=== PATIENT | male | born 1960 ===

== ENCOUNTER 2020-04-11 18:53 | Emergency (ER) | payer MEDICARE, SELFPAY ==
--- NOTE | 2020-04-11 18:51 | ED.GENADUL_ITS ---
Discharge Plan Disposition Patient Disposition: HOME Condition: Good Discharge Details Chief Complaint: PsychEval Clinical Impression: Social fears Primary Care Provider: Belinda,Local ED Provider: Justine Baeza Home Meds and New Rx's Prescriptions: No Action No Known Home Meds RF: 0 Discharge Instructions Additional Instructions: Please follow-up with primary care provider soon as possible, call tomorrow to schedule follow-up appointment. You will be safe at home tonight, please continue to monitor. If you develop any new or worsening symptoms to seek care urgently once again. Discharge Data Discharge Date/Time-TO BE ENTERED AT DEPARTURE: 04/11/20 22:35 Medical Decision Making Patient is a 59-year-old male, unknown past medical history, presenting via EMS with flight of ideas. Patient was found in police department where he had gone in to be in the air conditioning. EMS states that initially, patient has been requesting to go to [facility] for further care. Patient reports that he was there 2 days ago for similar incident. He states that the patient had initially been very verbal in discussing multiple social issues. However, he then began endorsing suicidality. He is reporting that he is homeless. States that he did get good care at [facility] and would like to have similar completed here. On exam, patient does appear anxious with flight of ideas, and is perseverating on his current social situation. Unable to obtain a good history from him secondary to his current thought process. He does seem to escalate become more agitated when I tried interject questions. Not see any evidence of trauma. He is moving all his extremities well. Alert and oriented x3. Will obtain note from [place]. Patient is in agreement to have same treatment that he received there. Patient goes by Bryce. Patient is requesting food, a dark room, quiet. He states that I am suicidal until 6:55AM when you can just drop me off at the bus stop. Contacted [facility] to discuss recent treatment. Notes reviewed from 04/08/2020. Patient was seen there, patient was having vomiting and vertigo. He declined any medications. He denies suicidal or homicidal thoughts at that time. History there was also limited because of constant talking. Only intervention completed at that point was food and rest. Most, after 1 hour of sleeping. He had declined assistance at that point was discharged home. Consulted with mental health. They evaluated patient initially had the same difficulty with the patient having flight of ideas and not wanting to be interrupted. However, with time patient did have a much more calm talk with him. He denied any thoughts of self-harm or harming others. Mental health did not feel that he needed inpatient management nor does the patient want this. I did encourage close follow-up with primary care. Many different avenues regarding longterm options were discussed. In the end, it was determined that the patient was not in fact infected from his apartment but rather was given a warning and that he is able to return without issue. Patient will be transferred via [employer] back to his previous place of residence. He was given return precautions. I have asked her care management team to recheck the patient establish primary care. All his questions and concerns were addressed and he is in agreement this plan. HPI General Mode of arrival: EMS . Date/Time Provider Initiated Documentation: 04/11/20 20:27 . Limitations to Documentation: altered mental status (patient having flight of ideas, will not pause for questioning) . Information obtained by: patient, EMS, RN notes reviewed and old records reviewed . HPI Narrative: Patient is a 59-year-old male with no known past medical history, presenting today after being evaluated by EMS at police station. Patient states that he went into the police station for air conditioning. He reported to EMS that he was suicidal but is now reporting that this is more urgent to be transferred to the hospital. He states that he was at his apartment when he was served in addiction notice. Seems very distressed about this. Is distressed about a multitude of social concerns including the general state of the country, poisonous caterpillars, COVID-19, just to name a few. Patient reports he was seen at [facility] 2 days ago for same issue. His primary concern at this point is housing. He denies any headache or visual changes. He feels that he is at his baseline. He is not endorsing any pain at this point. He is not endorsing any hallucinations. No homicidality. Patient does report that he has restraining order against somebody in the community which is also very distressing for him. Related Data Home Medications Medication Instructions Recorded Confirmed Unknown [No Known Home Meds] 04/11/20 04/11/20 Allergies Allergy/AdvReac Type Severity Reaction Status Date / Time No Known Allergies Allergy Unverified 04/11/20 20:41 Review of Systems Constitutional Constitutional: Reports as per HPI, Denies chills, Denies fatigue, Denies fever(s), Denies headache(s) and Denies weakness Eyes Eyes: Denies change in vision ENT Ears, Nose, Mouth, and Throat: Denies headache(s) Cardiovascular Cardiovascular: Reports as per HPI, Denies chest pain and Denies dyspnea Respiratory Respiratory: Reports as per HPI, Denies cough and Denies dyspnea Gastrointestinal Gastrointestinal: Reports as per HPI, Denies abdominal pain, Denies change in bowel habits, Denies nausea and Denies vomiting Genitourinary Genitourinary: Denies system reviewed and no additional complaints, except as documented (denies any change in urinary habits) Musculoskeletal Musculoskeletal: Denies abnormal gait Integumentary/Breasts Skin/Breast: Reports as per HPI and Denies rash Neurologic Neurologic: Denies abnormal movements, Denies abnormal speech, Denies abnormal gait, Denies behavioral changes, Denies headache(s), Denies paresthesias and Denies weakness Psychiatric Psychiatric: Reports as per HPI, Denies behavioral changes, Denies mood swings, Denies paranoia, Denies visual hallucinations, Denies homicidal ideation and Denies suicidal ideation Endocrine Endocrine: Denies fatigue [facility] Social History Smoking/Tobacco Use Status: Former Tobacco Use Alcohol Intake: former Substance use type: does not use Do you feel safe at home: No Additional Social history: homeless Exam Const General: cooperative, healthy appearing, well developed, well groomed, anxious and disheveled Nutritional Appearance: average body habitus and well nourished Orientation: alert, awake and oriented x3 Eyes General: appearance normal, both eyes and all related structures Resp Effort & Inspection: normal respiratory effort, able to speak in complete sentences and no respiratory distress Auscultation: clear to auscultation bilaterally, no rales, no rhonchi and no wheezes Cardio Rate: regular rate Rhythm: regular rhythm Heart Sounds: S1 normal and S2 normal Skin General skin exam: no rashes or lesions noted Trauma: no lacerations or abrasions Neuro General: patient alert and patient awake Cognition: normal cognition Speech: speech normal Gait: normal gait Psych Appearance: disheveled Mental Status: mental status grossly normal Speech and Movement: agitated Mood: expansive Affect: labile affect Attitude: cooperative Thought Process: flight of ideas and perseverating (social stressors) Thought Content: no homicidality and suicidality Insight: limited Judgment: limited
[2020-04-11 19:20] VITALS: BP 141/95; PULSE 86; RESP 16; TEMP 36.6; O2SAT 97
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
--- NOTE | 2020-04-11 20:40 | NUR.NOTE ---
[facility] mental health in to eval pt. Declined josselyn.
--- NOTE | 2020-04-11 21:42 | MHPN_ITS ---
Date of service: 04/11/20 Time of Service: 21:55 Mental Health Progress Note Progress Note Progress Note: Presenting Issue: Client presented to ED via ambulance after walking into [facility] Police Dept. Advising officers that he needed medical treatment. Client denies SI/HI, stating I'm not going to hurt myself or others. Precipitating Factors Client states he is homeless, though he does rent an apartment on [address] in [facility]. Client states he was prescribed Devol at one time, but doesn't take it. Disposition * Behavior: Client is manic, and has a challenging time allowing this food writer to interject into the conversation. Client is laying down on his hospital bed, holding a vomit bag. *Eye Contact: good eye contact *Mood: Client is agitated but not aggressive *Affect: Client displays manic speech, labile affect *Appetite: Client states he needs to eat, and that is why he feels sick to his stomach. ED staff will provide dinner. *Sleep(trouble falling/staying asleep): Did not assess Plan(please elaborate and include that physician is consulted with plan and/or placement): Client will be discharged from ED and transported to the [facility] by [facility]. Consult with Jenn Baeza, client is not a danger to himself or others. Clinician's Name , Title, and Signature Carolyn Cordova Emergency Services Charge Master Coordinator, [facility] Make sure that you are photocopying and submitting this to [facility] records Dept. to be scanned into chart.
== END 2020-04-11 22:35 | disposition home or self-care (01) ==
LOC: ER 23:24
PROVIDERS: Emergency Provider Physician Assistant
DX: R41.89 Other symptoms and signs involving cognitive functions and awareness (principal)
CPT/HCPCS: 99284; 99283

== ENCOUNTER 2020-04-14 02:01 | Emergency (ER) | payer MEDICARE, SELFPAY ==
[2020-04-14 02:00] VITALS: BP 140/76; PULSE 90; RESP 16; TEMP 36.6; O2SAT 98
--- NOTE | 2020-04-14 02:04 | ED.GENADUL_ITS ---
Discharge Plan Disposition Patient Disposition: HOME Condition: Stable Discharge Details Chief Complaint: PsychEval Clinical Impression: Manic behavior, Anxiety Primary Care Provider: Belinda,Local ED Provider: Harriet Davis Home Meds and New Rx's Prescriptions: No Action No Known Home Meds RF: 0 Discharge Instructions Instructions: Anxiety (ED) Additional Instructions: Follow-up with Caroline from [facility] today at [facility] at 1pm. Go to [facility] after discharge from here to arrange for a ride home. Return to the emergency department with any worsening or new concerning symptoms. Discharge Data Discharge Date/Time-TO BE ENTERED AT DEPARTURE: 04/14/20 11:00 Discharge Physician: Harriet Davis Medical Decision Making <Arjun Hardy DO - Last Filed: 04/14/20 22:32> 59-year-old male who is a poor historian presents today for evaluation of mental health crisis. He was brought by EMS here after the police were called when the patient was throwing some plants off of his balcony. At the time he denied any homicidal or suicidal ideations. Her police recommended that he come to the ER for further evaluation. He was then subsequently brought by EMS. Currently the patient has no complaints, demonstrates notable pressured speech and flight of ideas. He denies homicidal, suicidal ideations, he denies auditory or visual hallucinations. He has no other complaints at this time. Physical exam demonstrates notable pressured speech, flight of ideas, and complete verbalization of all of his thoughts. No homicidal or suicidal ideations are to speak of. Patient is otherwise pleasant and follows all direction. Concern for manic episode. Clinically appears medically clear, however we will get basic/appropriate labs for further assessment, contact mental health, get a sitter, monitor closely and reassess. 3:24 AM Patient continues to demonstrate flight of ideas. He has been assessed by mental health, major uncertain if he would qualify for EE at this time. Currently the patient is willing to stay voluntarily for reassessment later this morning. He has been medically cleared. I do feel that he would benefit from an antipsychotic or sleeping medicine to help him rest, however at this time he does not want any additional medications. We will offer Zyprexa if he does decide to take it. We will continue to monitor here closely, for reassessment by mental health in the grades 9 thru 12 visiting teacher at 7 AM. Patient otherwise remained stable. If mental health assessment has not been completed by 8 AM the patient will be signed out to my colleague for further management. 5:32 AM The patient has been speaking throughout the night, still demonstrates symptoms of deyanira, but continues to deny homicidal or suicidal ideations. Patient did take a brief nap, he has awoken up now, seeing the clock, and is now demanding a phone to contact [facility] get a ride. Uncertain as to where he is actually trying to go. We did contact mental health again, discussed the scenario with them as well as our capabilities to hold the patient here against as well in his current scenario. They will be reaching out for a formal QMHP further potential evaluation. Is not currently clear from them as to what are allowances in the scenario as the patient currently denies any homicidal or suicidal ideations but at the same time does not appear to be of his palm mind, with is clear evidence of deyanira, flight of ideas, pressured speech, and somewhat inconsistent statements. Currently the patient is slightly redirectable, but we are having difficulty maintaining this redirection. We are waiting for mental health callback at this time for further recommendations and direction. 5:41 AM At this time currently has not been able to get a hold of any of her [facility] for further direction or evaluation. The patient remains redirectable. His agitation has increased, but he remains nonviolent at this time. 5:58 AM The scenario has been discussed with Carolyn, and at this time upon her asses sment she recommends that if the patient does want to go and does not want to stay he is free to do so as he is currently not showing any homicidal or suicidal ideations and is not showing evidence that he is a direct threat to himself or others. They are currently still trying to get a QMHP and assessed the patient here however they are having difficulty getting in contact with those currently salesperson recreational vehicles. <Harriet Davis DO - Last Filed: 04/16/20 08:44> 0800 --Case endorsed by Dr. Hardy to follow-up with mental health regarding disposition. 09 --Venus and Lavonne evaluated patient at bedside. Lavonne knows patient well and knows the area where he lives and the people that he is speaking of and he does not demonstrate any psychotic behavior, but rather his behavior appears consistent with his deyainra and anxiety. He denies any suicidal or homicidal ideation. There is no indication for inpatient psychiatric hospitalization and patient will be discharged home. Plan is for patient to meet with Caroline from [facility] services at [address] [facility] to continue to arrange his treatment plan. A CMP was added to initial order set and negative for any acute findings. A UDS was not obtained and do not see an indication to hold patient here to obtain this. Patient was provided with a ride home. Usual and customary return precautions given prior to discharge. HPI <Arjun Hardy DO - Last Filed: 04/14/20 22:32> General Date/Time Provider Initiated Documentation: 04/14/20 02:04 . HPI Narrative: 59-year-old male who is a poor historian presents today for evaluation of mental health crisis. He was brought by EMS here after the police were called when the patient was throwing some plants off of his balcony. At the time he denied any homicidal or suicidal ideations. Her police recommended that he come to the ER for further evaluation. He was then subsequently brought by EMS. Currently the patient has no complaints, demonstrates notable pressured speech and flight of ideas. He denies homicidal, suicidal ideations, he denies auditory or visual hallucinations. He has no other complaints at this time. Related Data Home Medications Medication Instructions Recorded Confirmed Unknown [No Known Home Meds] 04/11/20 04/11/20 Allergies Allergy/AdvReac Type Severity Reaction Status Date / Time No Known Allergies Allergy Unverified 04/14/20 02:12 General MILADY: 2 Review of Systems <Arjun Hardy DO - Last Filed: 04/14/20 22:32> All systems reviewed & are unremarkable except as noted in HPI and below PFSH <Arjun Hardy DO - Last Filed: 04/14/20 22:32> Social History Smoking/Tobacco Use Status: Former Tobacco Use Alcohol Intake: former Substance use type: does not use Do you feel safe at home: Yes Do you feel safe in your relationship?: Yes Additional Social history: homeless Exam <Arjun Hardy DO - Last Filed: 04/14/20 22:32> Narrative Exam Narrative: 1.Const: Well-nourished, Well-developed, appearing stated age 2.Eyes: PERRL, no conjunctival injection, and symmetrical lids. 3.ENT: Atraumatic external nose and ears. Moist MM. Neck: Symmetric, trachea midline, No thyromegaly. 4.CVS: +S1/S2, No murmurs or gallops. Peripheral pulses 2+ and equal in all extremities. Brisk capillary refill in all extremities. 5.RESP: Unlabored respiratory effort. Clear to auscultation bilaterally. No wheezes rales or rhonchi 6.GI: Soft, Nontender/Nondistended, No hepatosplenomegaly. No guarding or rebound. 7.MSK: Normocephalic/Atraumatic, Extremities w/o deformity or ttp No cyanosis or clubbing, Normal movement of all extremities 8.Skin: Warm, Dry. No rashes or lesions. 9.Neuro: meat team member II-XII grossly intact. Sensation grossly intact, no focal neurologic deficits. 10.Psych: (AAO) x3. Notable pressured speech, flight of ideas, continued verbalization of all of his thoughts. Sign Out <Arjun Hardy DO - Last Filed: 04/14/20 22:32> Sign Out Data: Sign Out Comment: Pending assessment by [facility], symptoms are concerning for deyanira, schizophrenia potentially. Medically cleared. Last updated by Arjun Hardy DO at 04/14/20 07:42
[2020-04-14 02:23] LABS: Abs Immature Grans 0.01 k/cumm (0.0-0.09); Absolute Basophil Count 0.01 k/cumm (0.0-0.2); Absolute Eosinophil Count 0.08 k/cumm (0.0-0.7); Absolute Lymphocyte Count 1.82 k/cumm (1.2-3.4); Absolute Monocyte Count 0.46 k/cumm (0.11-0.7); Absolute Neutrophil Count 3.55 k/cumm (1.2-6.7); Basophils % 0.2; Eosinophils % 1.3; HCT 42.8 % (40.0-50.0); Immature Grans % 0.2 %; Lymphocytes % 30.7; Mean Corpuscular Hemoglobin 32.1 pg (27.0-33.0); Mean Corpuscular Volume 91.5 fL (80-95); Mean Platelet Volume 8.4 fL (8.0-11.0); Monocytes % 7.8; Neutrophils % 59.8; Platelet Count 344 x1000/uL (130-400); RBC 4.68 m/cumm (4.50-6.00); RBC Distribution Width 12.3 % (11.8-14.1); White Blood Cell Count 5.93 k/cumm (4.4-10.8)
[2020-04-14 02:37] LABS: Salicylate < 2.8 mg/dL (2.8-20.0)
[2020-04-14 02:38] LABS: Acetaminophen < 2 ug/mL (10-30)
[2020-04-14 02:47] LABS: ETHANOL BLOOD < 3.0 mg/dL (<3); TSH (W/Ref FT4) 3.65 uIU/mL (0.36-3.74)
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
--- NOTE | 2020-04-14 03:37 | NUR.NOTE ---
Nursing Note: Contacts Reilly Gastelum [phone] [address], [place] [id number]
--- NOTE | 2020-04-14 03:59 | PDOC.CMSAFED ---
- If Service Date Differs Date of service: 04/14/20 Time of Service: 03:59 Care Management Safety Plan Melchor is a 59 year old male that is presenting with symptoms of Jacquelyn he is not HI or SI. This is Melchor's second visit in three days to the ED. Today he is presenting with symptoms per provider, of pressured speech and some delusional behaviors. is concerned that Melchor's symptoms may affect his decision making capability if discharged from the ED. Currently Melchor is willing to stay in the ED until the morning, Please see [facility] crisis note for details. As long as Melchor remains voluntary he will remain in that status with an interim safety plan and one on one support by CPSO. Melchor will be revaluated in the morning by [facility] to determine next level of care. Melchor is willing to stay he is not willing to accept medications at this time to manage symptoms. CM reviewed the interim safety plan with to determine level of restriction to support Melchor's safety. The following plan will act as a safety plan until further evaluation. Interim safety plan 1. Melchor may remain in his own clothing he is not currently SI/HI. 2. Melchor will have a one on one CPSO or qualified RN, CARTOGRAPHIC AIDE, or ELECTRIC STOVE MECHANIC at all times. 3. Staff will follow the [facility] managing the behavioral health patient policy 4. Melchor may have paper cups, plates and can have a regular spoon for meals, to be accounted for by staff after his meal. 5.He may use comfort bath wipes or shower if available with one on one supervision. 6. Melchor will have qualified staff with him when outside the room including escort to and from the bathroom while in the ED. 7. Melchor may have the following activities including paper, reading material, coloring, music tablet, television if becomes available. 8. Visitors at the discretion of primary care team and Melchor's ability to engage. 9. Telephone - with supervision This safety plan is in place until Melchor can be evaluated by [facility] in the morning. If Melchor meets the criteria for psychiatric stabilization the child care associate teacher will meet with the patient face to face to establish a safety plan based on his goals and safety. Melchor will remain in the ED at this time. If Melchor chooses to leave [facility] please contact the CM foot and ankle surgeon and [facility] to have him evaluated prior to leaving the hospital.
--- NOTE | 2020-04-14 04:00 | NUR.NOTE ---
Nursing Note: Patient allowed to remain in patient clothing as he is not SI/HI per Dr Hardy.
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
--- NOTE | 2020-04-14 05:28 | NUR.NOTE ---
Nursing Note: Patient becoming agitated no one wants me. Call me [facility] so I can get to [place]. Dr Hardy has call out to Mental Health to discuss possible EE again. Await call.
--- NOTE | 2020-04-14 06:46 | NUR.NOTE ---
Nursing Note: Patient ambulated to restroom. Instructed to leave bag with personal belongings in room. Patient brought his insurance, receipts and mail with him to restroom. Continues to be redirectable. Awaiting phone call for further evaluation and management from Mental Health.
--- NOTE | 2020-04-14 07:00 | NUR.NOTE ---
Nursing Note: Handoff given to Hanh RODRIGUEZ.
--- NOTE | 2020-04-14 07:15 | NUR.NOTE ---
patient talking non-stop stating he needs a bus to take him somewhere. Advised patient he needed to remain in his room (as he was coming out of his room). Advised pt. that he would be remaining here until he had spoken and been cleared for discharge, if appropriate, by and the MD.
[2020-04-14 09:12] LABS: ALT 38 U/L (16-63); AST 40 U/L (15-37); Albumin 4.4 g/dL (3.4-5.0); Alkaline Phosphatase 56 U/L (46-116); Anion Gap 14.3 mmol/L (3-11); BUN 24 mg/dL (7-18); Bilirubin, Total 0.5 mg/dL (0.2-1.0); CO2 23.7 mmol/L (21.0-32.0); CREATININE 1.02 mg/dL (0.70-1.30); Calcium 9.4 mg/dL (8.5-10.1); Chloride 104 mmol/L (98-107); Glucose 122 mg/dL (74-106); Potassium 3.7 mmol/L (3.5-5.1); Sodium 142 mmol/L (136-145); Total Protein 7.8 g/dL (6.4-8.2)
--- NOTE | 2020-04-14 09:20 | PDOC.MHCN_ITS ---
Date of service: 04/14/20 Time of Service: 09:20 Mental Health Crisis Note Presenting Issue How did you arrive at the ED and why did you come: Melchor arrived to the ER early this am via ambulance. He was sent by LE after a neighbor called 911. Precipitating Factors Melchor denied SI and HI. He is not showing signs of delusions althoug it appears that way, the information he is sahring is common street knowledge. Disposition BEHAVIOR: Melchor is presenting as very manic with pressured speech. He is cooperative and engaged. Melchor remembers meeting with this clinician months ago when we were first brought to his attention. EYE CONTACT: Melchor makes good eye contact and it is at times intense. MOOD: Melchor presents as manic and has rapid speech and thoughts. AFFECT: Affect appears normal mostly but eccentric at times. APPETITE: Not discussed SLEEP(trouble falling/staying asleep: Not discussed Plan Melchor to be d/c today. He will meet with the library manager at 1 today at [facility]. Rail Technician will assist him in getting set up with supports and services. Signature Clinician's Name/Title: Venus Syed MS, [facility] EMergency Services Clinician
== END 2020-04-14 11:00 | disposition home or self-care (01) ==
PROVIDERS: Student in an Organized Health Care Education/Training Program; Emergency Provider Physician Assistant
DX: F30.10 Manic episode without psychotic symptoms, unspecified (principal); F41.9 Anxiety disorder, unspecified
CPT/HCPCS: 36415; 80053; 99283; 80320; 80329; 84443; 85025

== ENCOUNTER 2020-04-24 16:50 | Emergency (ER) | payer MEDICARE, SELFPAY ==
[2020-04-24 16:47] VITALS: BP 140/99; PULSE 101; RESP 22; TEMP 36.7; O2SAT 97
--- NOTE | 2020-04-24 17:04 | NUR.NOTE ---
Nursing Note: Pt backpacks removed from room. Cell phone, sweatshirt and wallet remain at this time. Provider and industrial maintenance mechanic aware.
--- NOTE | 2020-04-24 17:25 | W.ED.GENAD ---
Discharge Plan Disposition Patient Disposition: HOME Condition: Stable Discharge Details Chief Complaint: PsychEval Clinical Impression: Manic behavior Primary Care Provider: Belinda,Local ED Provider: El Telles Home Meds and New Rx's Prescriptions: No Action No Known Home Meds RF: 0 Discharge Instructions Instructions: Psychotic Disorder (ED) Additional Instructions: At this time your evaluation does not show any obvious emergent process. You have been evaluated by General acute hospital and plan is for discharge. Please follow their instructions. Watch for new or worsening symptoms and return to the ER for any concerns. Medical Decision Making <ADAM Holcomb - Last Filed: 04/24/20 19:11> This is a 59-year-old gentleman who presents via EMS requesting a psychiatric evaluation. He is asking for Venus by name. He is not really willing to engage much in HPI or physical examination. He denies recent illness or trauma. He has no acute medical concerns or complaints at this time. He denies any suicidal or homicidal ideations whatsoever. He does report that he is angry with the police, he feels as though they are harassing him, arresting him unlawful he. He reports that he has multiple lawsuits going through the district sales manager and Mainframe Analyst. He begins talking about his mother and then laughs inappropriately. He tells me that he is homeless and he has nowhere to go at the moment. He would like a ride or free transportation to [place]. At this time though he is not willing to divulge much information he clearly denies any acute medical concerns or complaints. He denies any suicidal or homicidal ideations. I am not seeing any clear indication that would require emergent psychiatric hospitalization, therefore I will not reflexively obtain laboratory values. I will reach out to [facility] human services, specifically Venus, for psychiatric evaluation that the patient is requesting. Venus came to the ER for a [id number] evaluation, please see her note. At this time she does not believe that he needs inpatient criteria and recommends discharge. Discharge papers were printed, and we presented the discharge papers with MICHAEL Donovan, officer, Dr. Beauchamp, and myself. Patient was initially unwilling to be discharged however then after explaining to him that he had no emergent process that would require inpatient services, he was willing to be discharged. He gathered his belongings and walked out of the hospital on his own will. He reported that he was going to go down to the local grocery store and attempt to find a ride to [place]. Upon discharge patient appears well, nontoxic. Medical Records Medical records reviewed: Yes I reviewed the patient's medical records. <Favian Beauchamp MD - Last Filed: 04/24/20 18:21> Patient seen and examined [id number] and in conjunction with Mr. Telles. Also discussed with mental health screener. I agree with Mr. Telles's assessment and plan of care. HPI <ADAM Holcomb - Last Filed: 04/24/20 19:11> General Mode of arrival: EMS. Date/Time Provider Initiated Documentation: 04/24/20 16:51. Limitations to Documentation: no limitations. Information obtained by: patient and EMS. HPI Narrative: This is a 59-year-old gentleman who presents via EMS requesting a psychiatric evaluation by Venus. Patient initially is unwilling to answer any questions, does not want to get into hospital attire, and does not want to part with any of his belongings. After showing a power of numbers, he was willing to allow his bags to be placed outside of the room. He denies any acute medical problems to me. Denies recent illness or trauma. Denies alcohol or drugs. He does not want to answer any more of my questions and continues to request a psychiatric evaluation. He has multiple comments regarding the LAKEISHA and Mainframe Analyst. He talks about his mother but does not make any clear statements or sense. He denies any suicidal or homicidal ideations to me. Related Data Home Medications Medication Instructions Recorded Confirmed Unknown [No Known Home Meds] 04/11/20 04/11/20 Allergies Allergy/AdvReac Type Severity Reaction Status Date / Time No Known Allergies Allergy Unverified 04/24/20 16:59 General Stated Complaint: PsychEval MILADY: 2 Review of Systems <ADAM Holcomb - Last Filed: 04/24/20 19:11> Unobtainable due to mental status PFSH <ADAM Holcomb - Last Filed: 04/24/20 19:11> Social History Smoking/Tobacco Use Status: Former Tobacco Use Alcohol Intake: former Substance use type: does not use Do you feel safe at home: Yes Do you feel safe in your relationship?: Yes Additional Social history: homeless Exam <ADAM Holcomb - Last Filed: 04/24/20 19:11> Const General: healthy appearing, comfortable and no acute distress Orientation: alert, awake and oriented x3 HENMT Head: normal to inspection, normocephalic and atraumatic Face and sinus: normal facial exam Mouth: moist mucous membranes Eyes Conjunctivae: conjunctivae normal Sclera: sclerae normal Neck Neck: normal visual inspection, full ROM, no meningeal signs, trachea midline, supple and nontender Resp Effort & Inspection: normal respiratory effort and able to speak in complete sentences Auscultation: clear to auscultation bilaterally Cardio Rate: regular rate Rhythm: regular rhythm GI Palpation: soft and nontender Back/Spine/Pelvis Back: No back tenderness Skin General skin exam: no rashes or lesions noted Neuro General: patient alert, patient awake, patient oriented x3, moves all extremities and no focal motor deficits Cranial Nerves: CN's II-XI intact bilaterally Gait: normal gait Motor: muscle tone normal throughout and strength 5/5 throughout Sensory Exam: no sensory deficits noted Extrem General: normal to inspection, full ROM and capillary refill normal Psych Appearance: grossly normal Speech and Movement: agitated and pressured speech Mood: manic mood and paranoid Affect: anxious affect Attitude: guarded Thought Process: flight of ideas Thought Content: no homicidality and suicidality Insight: fair Judgment: fair Course <ADAM Holcomb - Last Filed: 04/24/20 19:11> Vital Signs Vital signs: Vital Signs Temperature 36.7 C 04/24/20 16:47 Pulse 101 H 04/24/20 16:47 Respiratory Rate 22 04/24/20 16:47 Blood Pressure 140/99 H 04/24/20 16:47 Pulse Oximetry 97 04/24/20 16:47 Temperature 36.7 C 04/24/20 16:47 Temperature Source Skin 04/24/20 16:47 Pulse 101 H 04/24/20 16:47 Respiratory Rate 22 04/24/20 16:47 Respiratory Effort Non-Labored 04/24/20 17:18 Blood Pressure 140/99 H 04/24/20 16:47 Blood Pressure Position Sitting 04/24/20 16:47 Pulse Oximetry 97 04/24/20 16:47 Oxygen Delivery Method Room Air 04/24/20 16:47 Oxygen Flow Rate 0 04/24/20 16:47
--- NOTE | 2020-04-24 18:23 | PDOC.MHCN_ITS ---
Date of service: 04/24/20 Time of Service: 18:23 Mental Health Crisis Note Presenting Issue How did you arrive at the ED and why did you come: Melchor arrived via ambulance after he called 911. He is requesting an evaluation. Precipitating Factors Melchor refused to answer any questions and it was not until he was told he was leaving he said he was going to kill himself. He said as he was being discharged that he is not SI here at this hospital that he will be at [facility]. Disposition BEHAVIOR: Melchor initially came in asking for this clinician. Melchor stated that he was arrested today and that he is here because of you fucking MH people. He would not engage in a conversation so this clinician ended the assessment and asked the ER to discharge him. He initially refused to go and so was called to escort him out. He reported that he was goingto [facility] to [facility] for an ambulance to go to [place]. EYE CONTACT: Melchor would not make eye contact. MOOD: Melchor is manic and would not engage in treatment. He reports that he is angry that he is being charged. AFFECT: Melchor's affect is flat. APPETITE: Not assessed SLEEP(trouble falling/staying asleep: Not assessed Plan Melchor was discharged from ER to go home. No other follow up is needed. Signature Clinician's Name/Title: Venus Syed MS, [facility] Emergency Services Clinician
== END 2020-04-24 18:30 | disposition home or self-care (01) ==
PROVIDERS: Emergency Provider Physician Assistant
DX: F31.10 Bipolar disorder, current episode manic without psychotic features, unspecified (principal)
CPT/HCPCS: 99283

== ENCOUNTER 2020-04-25 01:05 | Observation (INO) | payer MEDICARE, SELFPAY ==
--- NOTE | 2020-04-24 23:52 | W.ED.GENAD ---
Discharge Plan Discharge Details Chief Complaint: PsychEval Primary Care Provider: Belinda,[facility] ED Provider: Arjun Hardy Home Meds and New Rx's Prescriptions: No Action No Known Home Meds RF: 0 Medical Decision Making This is a 59-year-old male with a past medical history of notable deyanira, previous suicidal ideations and attempts, who presents today for suicidal ideations and deyanira. Over the last few days he has been thoroughly managed by mental health on both an outpatient basis and here in the ED. He has been to the ED twice recently, most recent time was earlier this evening where he was initially claiming suicidal thoughts, but eventually was deemed by mental health to be stable for discharge after evaluation. Subsequently after being discharged he left, and then contacted authorities stating that he was going to go into the [place]ter to kill himself. He was eventually found by police, and after they consulted venus from [facility] it was recommended that he come in for emergency evaluation and management with a plan for psychiatric admission. [facility] has contacted a optical coating technician, and has received a warrant for the patient to be brought in secondary to him being a danger to himself. Currently the patient has been brought in by law enforcement, he is currently demonstrating notable flight of ideas stating that he was just in [place] and applied to the local [employer] for a job (the [employer] and [place] has been closed for the last month and a half), he claims multiple things about his mother wanting to see him (who is currently ), and multiple other notably non-grounded statements. When asked direct questions he is unable to clearly answer, however multiple times both here and in the presence of mental health, Venus, as well as the police the patient has stated and continues to state I am going to jump off a bridge when I can find it and kill myself. History is otherwise limited to what is been given to us by mental health and PD. Physical exam demonstrates patient with notable pressured speech, flight of ideas, and significant nonsensical statements including statements wanting to harm himself, referring to his mother in a state that she would be living where she is actually , and other components. Patient is not acting in his own best interest, and is a threat to himself. He does not appear to be a threat to others at this time. Through prolonged and notable discussion the patient is able to follow commands. Initially he was offered Ativan to help relax, but he refused this. Restraints have not been needed at this time. If the patient's notable deyanira continues we will offer Zyprexa as an alternative. [facility] has seen and evaluated the patient, and they recommend prompt admission, and then transfer to a mental health facility. We will do a medical screening. He will be placed in paper scrubs, and will maintain one-to-one observation. EE paperwork has been filled out, [facility] recommends this. Patient will be admitted once medically clear. 3:02 AM Patient has been medically cleared, patient stable, he did take Zyprexa willingly, and is now sleeping comfortably. Laboratory work-up is non-concerning. Discussed case with Dr. Woodward, he agrees on admission. I will place admission orders on his behalf at his request. I have extensively reviewed the treatment plan with the patient. I have addressed all patient concerns at this time. I have also discussed the plan with the admitting physician and they agree with the current assessment and plan and have agreed to assume responsibility for the patient. All parties demonstrate verbal understanding and agreement with our assessment and plan at this time. HPI General Date/Time Provider Initiated Documentation: 04/25/20 01:06. HPI Narrative: This is a 59-year-old male with a past medical history of notable deyanira, previous suicidal ideations and attempts, who presents today for suicidal ideations and deyanira. Over the last few days he has been thoroughly managed by mental [facility] on both an outpatient basis and here in the ED. He has been to the ED twice recently, most recent time was earlier this evening where he was initially claiming suicidal thoughts, but eventually was deemed by [facility] to be stable for discharge after evaluation. Subsequently after being discharged he left, and then contacted authorities stating that he was going to go into the [place] to kill himself. He was eventually found by police, and after they consulted venus from [facility] it was recommended that he come in for emergency evaluation and management with a plan for psychiatric admission. [facility] has contacted a optical coating technician, and has received a warrant for the patient to be brought in secondary to him being a danger to himself. Currently the patient has been brought in by law enforcement, he is currently demonstrating notable flight of ideas stating that he was just in [place] and applied to the local [employer] for a job (the [employer] and [place] has been closed for the last month and a half), he claims multiple things about his mother wanting to see him (who is currently ), and multiple other notably non-grounded statements. When asked direct questions he is unable to clearly answer, however multiple times both here and in the presence of mental health, Venus, as well as the police the patient has stated and continues to state I am going to jump off a bridge when I can find it and kill myself. History is otherwise limited to what is been given to us by mental health and PD. Related Data Home Medications Medication Instructions Recorded Confirmed Unknown [No Known Home Meds] 04/11/20 04/25/20 Allergies Allergy/AdvReac Type Severity Reaction Status Date / Time No Known Allergies Allergy Unverified 04/25/20 01:58 General MILADY: 2 Review of Systems All systems reviewed & are unremarkable except as noted in HPI and below PFSH Social History Smoking/Tobacco Use Status: Former Tobacco Use Alcohol Intake: former Substance use type: does not use Do you feel safe at home: Yes Do you feel safe in your relationship?: Yes Additional Social history: homeless Exam Narrative Exam Narrative: 1.Const: Well-nourished, Well-developed, appearing stated age 2.Eyes: PERRL, no conjunctival injection, and symmetrical lids. 3.ENT: Atraumatic external nose and ears. Moist MM. Neck: Symmetric, trachea midline, No thyromegaly. 4.CVS: +S1/S2, No murmurs or gallops. Peripheral pulses 2+ and equal in all extremities. Brisk capillary refill in all extremities. 5.RESP: Unlabored respiratory effort. Clear to auscultation bilaterally. No wheezes rales or rhonchi 6.GI: Soft, Nontender/Nondistended, No hepatosplenomegaly. No guarding or rebound. 7.MSK: Normocephalic/Atraumatic, Extremities w/o deformity or ttp No cyanosis or clubbing, Normal movement of all extremities 8.Skin: Warm, Dry. No rashes or lesions. 9.Neuro: edge bander hand II-XII grossly intact. Sensation grossly intact, no focal neurologic deficits. 10.Psych: Flight of ideas, pressured speech, multiple non-grounded nonsensical statements,
--- NOTE | 2020-04-25 01:48 | PDOC.MHCN ---
Date of service: 04/25/20 Time of Service: 01:48 Mental Health Crisis Note Presenting Issue How did you arrive at the ED and why did you come: Melchor arrived tonight via [place] [employer] on a Warrant applied for by [facility] and signed by Judge Walker. Precipitating Factors Melchor had called 911 after his discharge from [facility] ER mid evening yesterday. He reported that he had left [facility] because they were racist. He called again and stated that he was going into the [place] to kill himself. Disposition BEHAVIOR: Melchor was uncooperative and not willing to go with LE or to the hospital willingly after making several statements that he was going to kill himself. He presents still with pressured speech and racing thoughts. EYE CONTACT: Melchor made good eye contact. MOOD: Melchor presents as being in a manic state. APPETITE: Not assessed. SLEEP(trouble falling/staying asleep: Not assessed Plan Melchor will stay at [facility] on EE status pending a second cert. He will be evaluated daily as a result. Signature Clinician's Name/Title: Venus Syed MS, [facility] Emergency Services Clinician
[2020-04-25 01:57] LABS: Abs Immature Grans 0.05 10^3/uL (0.0-0.06); Absolute Basophil Count 0.03 10^3/uL (0.0-0.2); Absolute Eosinophil Count 0.03 10^3/uL (0.0-0.7); Absolute Lymphocyte Count 1.77 10^3/uL (1.2-3.4); Absolute Monocyte Count 0.82 10^3/uL (0.1-0.8); Absolute Neutrophil Count 12.02 10^3/uL (1.2-6.7); Basophils % 0.2; Eosinophils % 0.2; HCT 48.5 % (40.0-50.0); HGB 16.6 g/dL (13.5-17.5); Immature Grans % 0.3; MCH 31.9 pg (27.0-33.0); MCHC 34.2 % (32.0-36.0); MCV 93.3 fL (80-95); MPV 8.5 fL (8.0-11.0); Monocytes % 5.6; Neutrophils % 81.7; Platelet Count 340 10^3/uL (130-400); RDW 11.9 % (11.8-14.1); RDW-SD 41.5 fL; WBC 14.71 10^3/uL (4.4-10.8)
[2020-04-25] MEDS: OLANZapine 10 MG TAB 20 MG PO (02:04)
--- NOTE | 2020-04-25 02:09 | CMSP_ITS ---
- If Service Date Differs Date of service: 04/25/20 Time of Service: 02:27 Care Management Safety Plan Melchor is a 59 year old male that is presenting with symptoms of suicidal ideation with a plan to jump off the bridge. CM has reviewed his clinical chart and reviewed the patient with [facility]. Melchor has been to the ED several times over the past few weeks and per HP is presenting with SI and a plan to act on his ideation. Melchor is now admitted involuntary and in need of psychiatric s tabilization. LISBET reviewed the safety plan with Venus Syed [facility] to determine level of restriction to support Melchor's safety. Involuntary safety plan for Melchor Gastelum 1. Melchor will change to paper clothing due to suicidal ideation. 2. Melchor will have a one on one CPSO or qualified RN, CITIZENSHIP INSTRUCTOR, or FOOD SAFETY OFFICER at all times. 3. Staff will follow the [facility] managing the behavioral health patient policy 4. Melchor may have paper cups, plates and cardboard utensils. 5.He may use comfort bath wipes or shower if available with one on one supervision. 6. Melchor will have qualified staff with him when outside the room including escort to and from the bathroom while in the ED. 7. Melchor may have the following activities including paper, reading material, coloring,television if becomes available. 8. Visitors none at this time 9. Telephone - with supervision 10. Melchor is involuntary and may not leave the facility unless being transferred to a psychiatric facility by appropriate transportation, he remains in the custody of department of mental health and will await a second certification with psychiatric provider. Second certification to be arranged by [facility]. If Melchor does attempt to leave Crisis [facility] [phone] will be contacted and the supervisor ornamental ironworking direct care specialist notified. [facility] will outreach inpatient facilities in the [facility] to identify placement for stabilization for Melchor. Second certification to be coordinated by [facility] with the direct care specialist assigned to Melchor. Once placement has been identified the patient will be transferred via calculation reviewer coordinated by [facility].
[2020-04-25 02:18] LABS: Salicylate < 2.8 mg/dL (2.8-20.0)
[2020-04-25 02:21] LABS: ALT 30 U/L (16-63); AST 26 U/L (15-37); Albumin 4.8 g/dL (3.4-5.0); Alkaline Phosphatase 69 U/L (46-116); Anion Gap 11.9 mmol/L (3-11); BUN 21 mg/dL (7-18); Bilirubin, Total 0.4 mg/dL (0.2-1.0); CO2 25.1 mmol/L (21.0-32.0); CREATININE 1.05 mg/dL (0.70-1.30); Calcium 9.9 mg/dL (8.5-10.1); Chloride 103 mmol/L (98-107); Glucose 120 mg/dL (74-106); Sodium 140 mmol/L (136-145); TSH (W/Ref FT4) 2.65 uIU/mL (0.36-3.74); Total Protein 8.5 g/dL (6.4-8.2)
[2020-04-25 02:28] LABS: ETHANOL BLOOD < 3.0 mg/dL (<3)
[2020-04-25 02:29] LABS: Acetaminophen < 2 ug/mL (10-30)
[2020-04-25 03:40] VITALS: BP 84/52; PULSE 67; RESP 16; TEMP 35.9; O2SAT 98
--- NOTE | 2020-04-25 06:26 | HPE_ITS ---
Date of service: 04/25/20 Time of Service: 06:26 Assessment and Plan Assessment and plan (1) Suicidal ideation: Start date: 04/25/20 Status: Acute Assessment and plan: This is a 59-year-old gentleman with known bipolar disorder and deyanira using it as an outpatient. Presently he has had increasing and escalating suicidal ideation and has been admitted involuntarily with a drug given warrant and placed into the ED. He did receive Zyprexa and slept well this morning. He will be evaluated by psychiatry with mental health consultation for inpatient psych care. (2) Bipolar I disorder with mood-congruent psychotic features: Status: Chronic Assessment and plan: Patient is not on medical therapy this time and does not accurately describe his medical therapy. Did mention Zyprexa but a be of his previous meds. He did receive to the ED with good effect. This will continued at a dose of 15 mg daily. History of Present Illness History of Present Illness Chief Complaint: Suicidal ideation with deyanira Narrative: This is 59-year-old male patient well-known to the emergency department and local mental health institution mostly treated as an outpatient for his manic disorder. He recently was having increased deyanira believing that he had a job lined up but I closed [facility] and that his mother was still alive. He was sharing something about missing his aunt and living outside and referencing COVID-19 pandemic and given his blood for plasma with antibodies at the time I met him. In the ED documentation for full details. Patient is unable to give history accurately. He did motor that he made him on Zyprexa as an outpatient but has no known home medication list. Did receive Zyprexa in the ED with good effect and was resting most of the night and acidizer. He was admitted after being EE'd and plans are for inpatient psychiatric care. He had multiple expressions of suicide before he was evaluated in the ED the evening prior to admission on the morning of admission. They varyied from him jumping from a bridge and shooting himself in the [place]ter. He was brought to the ED by the police with a warrant being given by a local sat tutor deeming that he was a threat to himself. He does report that he was a previous smoker and his WBC was slightly elevated in the ED. Also his glucose was slightly elevated, both possibly being secondary to adrenaline surging. Review of Systems Narrative: 13 point review of systems unobtainable with the patient's manic phase with wandering and tangential conversation. He does appear thin and darkly tanned and may have not been eating well and spending more time outside. [facility] Medical History (Updated 04/25/20 @ 06:50 by Kush Woodward) Anxiety (Chronic) Bipolar I disorder with mood-congruent psychotic features (Chronic) Social fears (Acute) Suicidal ideation (Acute) Social History Smoking/Tobacco Use Status: Former Tobacco Use Alcohol Intake: former Substance use type: does not use Do you feel safe at home: Yes Do you feel safe in your relationship?: Yes Additional Social history: homeless Meds Home Medications and Allergies Home Medications Medication Instructions Recorded Confirmed Type Unknown [No Known Home Meds] 04/11/20 04/25/20 History Allergies Allergy/AdvReac Type Severity Reaction Status Date / Time No Known Allergies Allergy Unverified 04/25/20 01:58 Exam Narrative Exam Narrative: General: Thin, very talkative with wandering conversation and tangential thoughts some following his manic psychosis. He appears mildly agitated with pressured speech and is oriented to place and possibly person but not time or purpose. HEENT: Normocephalic, eyes with pupils equal and reactive light symmetrically, extraocular intact and sclera anicteric. Oropharynx with dry oral mucosa and poor dentition. External ears normal. External nose normal without lesions. His face is darkly tanned. Neck: Supple no JVD. Lungs: Clear to all station percussion with no focalizing adventitious sounds. Back: Stooped posture with no CVA tenderness. Heart: Rate and rhythm with no murmurs or gallop appreciated. Abdomen: Scaphoid contour, soft and nontender with no palpable hepatosplenomegaly. Genitalia/rectal: Exam deferred. Extremities: Muscle wasting diffusely with no edema, cyanosis or clubbing. Skin: Darkly tanned with no suspicious lesions with partial exam. Neuro: Cranial nerves II to XII appear grossly intact, motor and sensory appear grossly intact. Psych: Tangential thought processes with very pressured speech stammering at times and wandering in conversation with some current events subsequent 19 and his thoughts. He appears severely manic. Remote and recent memory are difficult to assess. Results Labs Result diagrams: 04/25/20 01:52 04/25/20 01:52 Labs: Laboratory Results - last 24 hr 04/25/20 04/25/20 04/25/20 01:52 01:52 01:52 WBC 14.71 H RBC 5.20 Hgb 16.6 Hct 48.5 MCV 93.3 MCH 31.9 MCHC 34.2 RDW 11.9 Plt Count 340 MPV 8.5 Immature Gran % 0.3 Neutrophils % 81.7 Lymphocytes % 12.0 Monocytes % 5.6 Eosinophils % 0.2 Basophils % 0.2 Absolute Neutrophils 12.02 H Absolute Lymphocytes 1.77 Absolute Monocytes 0.82 H Absolute Eosinophils 0.03 Absolute Basophils 0.03 Sodium 140 Potassium 4.0 Chloride 103 Carbon Dioxide 25.1 Anion Gap 11.9 H BUN 21 H Creatinine 1.05 Estimated GFR/1.73 m2 >= 60.00 Glucose 120 H Calcium 9.9 Total Bilirubin 0.4 AST 26 ALT 30 Alkaline Phosphatase 69 Total Protein 8.5 H Albumin 4.8 TSH 2.65 Salicylates < 2.8 Acetaminophen < 2 Ethyl Alcohol < 3.0 Last Vital Signs Temp 35.9 C L 04/25/20 03:40 Pulse 67 04/25/20 03:40 Resp 16 04/25/20 03:40 BP 84/52 L 04/25/20 03:40 Pulse Ox 98 04/25/20 03:40 COVID-19 Screening Have you,or household,traveled outside [place] in last 14 days?: No
[2020-04-25] MEDS: OLANZapine 10 MG, OLANZapine 5 MG 15 MG PO (08:36)
[2020-04-25 09:24] VITALS: BP 111/67; PULSE 68; TEMP 35.8; O2SAT 99
[2020-04-25 09:26] LABS: Bacteria Negative HPF (Negative); Bilirubin Negative (Negative); Blood Trace-intact (Negative); Clarity Clear (Clear); Crystals Negative HPF (Negative); Epithelial Cells Rare HPF (Negative); Glucose Negative (Negative); Ketones Negative (Negative); Leukocyte Esterase Negative (Negative); Nitrite Negative (Negative); Specific Gravity >= 1.030 (1.005-1.025); Urobilinogen 0.2 EU/dL (Up TO 0.2); WBC 0-2 HPF (0-5)
[2020-04-25 09:27] LABS: C & S Indicated? No; Casts Negative LPF (Negative); Mucus Trace (Negative)
[2020-04-25 09:39] LABS: *AMPHETAMINES SCREEN URINE Negative (Negative); *BARBITURATES SCREEN URINE Negative (Negative); *BENZODIAZEPINES SCREEN URINE Negative (Negative); Cannabinoids THC POSITIVE (Negative); Cocaine Screen,Urine Negative (Negative); METHADONE URINE SCREEN Negative (Negative); OPIATES URINE SCREEN Negative (Negative); Tricyclic Antidepressants Negative (Negative)
--- NOTE | 2020-04-25 11:06 | PHA.REVIEW ---
Pharmacy Admission Review - Admission Clinical Review (Last Reviewed 04/25/20 @ 06:45 by Kush Woodward) Suicidal ideation (Acute) No Known Allergies Allergy (Unverified 04/25/20 01:58) - Renal Dosing Renal Dosing: BUN 21 mg/dL (7-18) H 04/25/20 01:52 Creatinine 1.05 mg/dL (0.70-1.30) 04/25/20 01:52 Medications needing adjustments: N/A (Need height and weight to calculate CrCl) - Anticoagulation Anticoagulation: Hgb 16.6 g/dL (13.5-17.5) 04/25/20 01:52 Hct 48.5 % (40.0-50.0) 04/25/20 01:52 Plt Count 340 10^3/uL (130-400) 04/25/20 01:52 Creatinine 1.05 mg/dL (0.70-1.30) 04/25/20 01:52 DVT Prohphylaxis: N/A Therapeutic Anticoagulation: N/A - Opiate Usage Evaluate Pain Scale/Pains Meds: N/A - Relevant Labs Sodium 140 mmol/L (136-145) 04/25/20 01:52 Potassium 4.0 mmol/L (3.5-5.1) 04/25/20 01:52 Chloride 103 mmol/L (98-107) 04/25/20 01:52 Electrolytes, C-Reactive P, ESR: Reviewed (BUN elevated at 21) - DM Control DM Control: Glucose 120 mg/dL (74-106) H 04/25/20 01:52 Insulin Dosing: N/A (No DM, glucose was elevated at 120) - Heart Failure/VA EF%, CORINNA's, B-Blockers, Diuretics: N/A - BP Control BP Control: Blood Pressure 111/67 Blood Pressure 84/52 If elevated: Reviewed (BP good, on lower end of normal range) - Qtc Review If Elevated: N/A (No EKG labs) - IV to PO Switch IV Medications: Reviewed - Home Meds Home Med List reviewed: N/A (Per MD patient stated he was on Zyprexa but no known home med list) - Current meds Current Medication Order Review: Reviewed - Comments Comments/Follow Ups: Monitor BUN and glucose (Per MD glucose may have been elevated due to adrenaline). Patient stated he was on Zyprexa, dose have order for it but does not have a home med list to confirm. Patient is waiting on placement to psychiatric inpatient care.
--- NOTE | 2020-04-25 11:58 | PDOC.MHCN ---
Date of service: 04/25/20 Time of Service: 11:30 Mental Health Crisis Note Presenting Issue How did you arrive at the ED and why did you come: Sharon was already on 2nd floor in section for individuals with mental health issues. Precipitating Factors Clt admitted to threatening commit suicide with a plan to jump off a bridge and went to the bridge. The clt denied that he would follow through but according to EE paperwork, he had made threats to kill self several times. Disposition BEHAVIOR: Manic-like. EYE CONTACT: Eye contact was intermittent. MOOD: Glynnt sounded like he was in a pleasant mood. AFFECT: Manic and highly tangential. APPETITE: Good SLEEP(trouble falling/staying asleep: Clt said that he was given something to relax him and he slept very well. Plan Sharon will stay on EE status for 2nd certification.
[2020-04-25 13:02] LABS: COVID-19 RT-PCR UVMMC Result Negative (Negative)
--- NOTE | 2020-04-25 16:13 | PDOC.CMSAFE ---
- If Service Date Differs Date of service: 04/25/20 Time of Service: 16:13 Care Management Safety Plan Melchor Mabry) has been calm and appropriate in all interactions with staff today. LISBET facilitated a zoom meeting with CYNTHIA Velazquez for an evaluation. Melchor had some difficulty answering questions directly during the interview. He stated that he would like to stay at [facility] for treatment. CM explained the process for evaluation this afternoon by a Psychiatrist with [facility], which will determine his next steps. CM discussed psychiatric placement with , who did not answer if he would agree to placement if he was not involuntary. CM discussed his safety plan (huddle) with his primary RN, Lorri, and the RN Coordinator, Jessica. His covid test result was negative. CM updated [facility] and [facility]. His second certification is scheduled for 7pm. CM will continue to follow and support the safety of and staff. Involuntary safety plan for Melchor Gastelum 1. Melchor will change to paper clothing due to suicidal ideation. 2. Melchor will have a one on one CPSO or qualified RN, PAID SEARCH MARKETING ANALYST, or BARBER TOOL SHARPENER at all times. 3. Staff will follow the [facility] managing the behavioral health patient policy 4. Melchor may have paper cups, plates and cardboard utensils. 5.He may use comfort bath wipes or shower if available with one on one supervision. 6. Melchor will have qualified staff with him when outside the room including escort to and from the bathroom while in the ED. 7. Melchor may have the following activities including paper, reading material, coloring,television if becomes available. 8. Visitors none at this time 9. Telephone - with supervision 10. Melchor is involuntary and may not leave the facility unless being transferred to a psychiatric facility by appropriate transportation, he remains in the custody of department of mental health and will await a second certification with psychiatric provider. Second certification to be arranged by [facility]. If Melchor does attempt to leave Crisis [facility] [phone] will be contacted and the personal care assistant personal care assistant notified. [facility] will outreach inpatient facilities in the [facility] to identify placement for stabilization for Melchor. Second certification to be coordinated by [facility] with the personal care assistant assigned to Melchor. Once placement has been identified the patient will be transferred via clinical trial manager coordinated by [facility].
--- NOTE | 2020-04-25 16:56 | CMPROGNOTE_ITS ---
- If Service Date Differs Date of service: 04/25/20 Time of Service: 16:56 Care Management Progress Note S/O: Melchor () has been calm and appropriate in all interactions with staff today. LISBET facilitated a zoom meeting with CYNTHIA Velazquez for an evaluation. Melchor had some difficulty answering questions directly during the interview. He stated that he would like to stay at [facility] for treatment. LISBET explained the process for evaluation this afternoon by a Psychiatrist with [facility], which will det ermine his next steps. CM discussed psychiatric placement with , who did not answer if he would agree to placement if he was not involuntary. LISBET discussed his safety plan (huddle) with his primary RN, Lorri, and the RN Coordinator, Jessica. His covid test result was negative. CM updated [facility] and [facility]. His second certification is scheduled for 7pm. CM will continue to follow and support the safety of and staff. A: Melchor is a 59 year old male admitted to [facility] on 04/25/20 with suicidal ideation. P: Melchor will be evaluated by a Psychiatrist at [facility] this evening to determine if he will be held involuntarily. Psychiatric stabilization is recommended by [facility]. A referral was sent to [facility], which was the only facility willing to accept a referral at this time. LISBET spoke with MICHAEL Olvera from [facility], who stated that they have one bed and many referrals that they are considering at this time. CM will continue to follow and support discharge planning considerations.
[2020-04-25 20:43] VITALS: BP 122/85; PULSE 80; RESP 18; TEMP 36; O2SAT 97
--- NOTE | 2020-04-26 | RT.EKG_ITS ---
APPROVED REPORT Exam: Resting ECG Patient Location: I HR:70 bpm ECG Measurements Heart Rate 70 AXIS WY 137 P 83 QRSd 97 QRS -3 QT 413 T 60 QTc 447 <Conclusion> Sinus rhythm...normal P axis, V-rate 60- 99 Probable left atrial enlargement...P >50mS, <-0.10mV V1
[2020-04-26] MEDS: Zolpidem 5 MG TAB PO (00:23)
[2020-04-26 06:50] LABS: Abs Immature Grans 0.01 10^3/uL (0.0-0.06); Absolute Basophil Count 0.02 10^3/uL (0.0-0.2); Absolute Eosinophil Count 0.18 10^3/uL (0.0-0.7); Absolute Lymphocyte Count 2.08 10^3/uL (1.2-3.4); Absolute Monocyte Count 0.49 10^3/uL (0.1-0.8); Absolute Neutrophil Count 3.26 10^3/uL (1.2-6.7); Basophils % 0.3; HCT 41.6 % (40.0-50.0); HGB 14.2 g/dL (13.5-17.5); Immature Grans % 0.2; Lymphocytes % 34.4; MCH 31.4 pg (27.0-33.0); MCHC 34.1 % (32.0-36.0); MPV 8.6 fL (8.0-11.0); Monocytes % 8.1; Platelet Count 267 10^3/uL (130-400); RBC 4.52 10^6/uL (4.36-5.78); RDW 12.1 % (11.8-14.1); RDW-SD 41.4 fL; WBC 6.04 10^3/uL (4.4-10.8)
[2020-04-26 07:07] LABS: ALT 28 U/L (16-63); AST 21 U/L (15-37); Albumin 3.7 g/dL (3.4-5.0); Alkaline Phosphatase 69 U/L (46-116); Bilirubin, Total 0.2 mg/dL (0.2-1.0); CREATININE 0.87 mg/dL (0.70-1.30); Calcium 9.1 mg/dL (8.5-10.1); Chloride 105 mmol/L (98-107); Glucose 82 mg/dL (74-106); Potassium 4.4 mmol/L (3.5-5.1); Sodium 140 mmol/L (136-145); Total Protein 6.8 g/dL (6.4-8.2)
[2020-04-26 07:11] LABS: BUN 31 mg/dL (7-18)
[2020-04-26 07:30] VITALS: BP 134/87; PULSE 79; RESP 18; TEMP 36.5; O2SAT 95
[2020-04-26] MEDS: LORazepam 1 MG TAB 2 MG PO (08:04)
[2020-04-26] MEDS: OLANZapine 10 MG, OLANZapine 5 MG 15 MG PO (08:04)
--- NOTE | 2020-04-26 08:17 | NUR.NOTE ---
Nursing Note: At 0730 on 04/26/20, this RN entered the pt.'s room to obtain VS, determine pain level, perform a head to toe assessment, and perform a suicide risk assessment. Pt. found to be sitting up in bed watching tv and talking to himself. Pt. allowed RN to obtain his VS and denied any pain. Pt. stated answers to frequently asked head to toe assessment questions before RN had even had a chance to ask the assessment questions. RN had to redirect the pt. multiple times in order to get the answers to the assessment questions. Pt. denied any suicidal or homicidal ideations or plans. RN unable to assess whether pt. is feeling depressed, down, or sad. Pt. having flight of ideas and very rapid, rambling, tangential speech. Pt. had to be redirected multiple times throughout the conversation. Pt. mentioning people such as Che from [facility] [employer] [facility] and Emilie (states Phan visited him at the homeless senior living one time). Pt. states that he had been told by the MD that he might be getting discharged around [phone] this morning, that he would be leaving via [facility], that he has three options for housing (one being a hotel in [place]), and that he has plenty of money in the bank to pay for it ...as long as they didn't take my money and hack in to my account. Pt. also states that the MD he spoke to on the computer last night ...really freaked me out. Pt. asking for some lorazepam (Ativan) stating, That Ativan stuff really worked last night. Is there any way I can have some more? Maybe I can get some for when I leave? RN informed pt. that they would talk to the charge nurse and the MD to see what they could do. RN left the room and informed the charge nurse of the pt.'s behavior, as well as, the pt.'s request for lorazepam (Ativan). MD paged to be notified of pt.'s behavior and to obtain an order. RN will reassess as necessary.
--- NOTE | 2020-04-26 08:33 | NUR.NOTE ---
Nursing Note: At 0800 on 04/26/20, this RN entered the pt.'s room to administer lorazepam (Ativan) 2 mg PO and olanzapine (Zyprexa) 15 mg PO per MD order. Pt. noted to be up wandering around his room, watching tv, and talking to himself and the CPSO. Pt. stated his name and date of appropriately when asked and was then medicated per the MAR. Pt. took his medications one at a time and before taking each one would ask, So this is safe right? I'm supposed to take this? I'm scared. It's not going to knock me out all day is it? RN reassured pt. that the medications were safe, had been prescribed by the MD, and that they would hopefully help him to feel less anxious. Pt. again asked RN if they knew anything about him being discharged and asked that he be informed when he was allowed to be discharged so that he could have his clothes and his wallet. Pt. also mentioning that when he leaves he will tip the [facility] local company refrigerated truck driver, as well as, have the [facility] local company refrigerated truck driver bring a tip to all the staff at the hospital ...or maybe some [employer] gift cards? You guys like coffee right? RN informed pt. that that wasn't necessary and that they would let him know if and when they heard anything about discharge. Pt. noted to wandering around the room and then standing in the doorway talking to the CPSO as the RN left the pt.'s room. Charge nurse notified of pt.'s behavior. RN will reassess as necessary.
--- NOTE | 2020-04-26 10:41 | W.NUTRFU ---
Date of service: 04/26/20 Time of Service: 10:41 Nutritional Follow up NOTE: 59 year old male admitted with mental health issues, awaiting placement. Following regular meal plan with adequate intake. Not at risk for nutritional decline at this time. Time Spent in Nutritional Counseling and Treatment: 0 time spent face to face
--- NOTE | 2020-04-26 11:04 | MHPN_ITS ---
Date of service: 04/26/20 Time of Service: 11:04 Mental Health Crisis Note Presenting Issue How did you arrive at the ED and why did you come: Melchor arrived at the ER Saturday via [facility] after making SI threats and refusing treatment. Precipitating Factors No assessment was able to be made this am due to his inability to wake up after having an ativan. Will try again this afternoon. Disposition BEHAVIOR: Not able to be assessed EYE CONTACT: not able to assess. MOOD: not able to assess AFFECT: not able to assess APPETITE: not able to assess SLEEP(trouble falling/staying asleep: sleeping when I zoomed in and was still sleeping at 1:45pm when Manager Social Media called Plan Melchor was accepted by [facility] today and [facility] will transport.
--- NOTE | 2020-04-26 12:49 | W.PM.DS.N ---
Date of service: 04/26/20 Time of Service: 12:49 DS: Diagnosis Discharge Diagnosis (1) Suicidal ideation: Status: Acute (2) Bipolar I disorder with mood-congruent psychotic features: Status: Chronic Discharge Plan Disposition Patient Disposition: [facility] Condition: Fair Discharge Details Chief Complaint: PsychEval Reason For Visit: SUICIDAL IDEATION, PSYCHOTIC EPISODE Admit Date/Time: 04/25/20 03:00 Admit Provider: Kush Woodward Attending Provider: Kush Woodward Primary Care Provider: Marva Trevino ED Provider: Arjun Hardy Hospital Course Hospital Course: This is 59-year-old male patient well-known to the emergency department and local mental health institution mostly treated as an outpatient for his manic disorder. He recently was having increased deyanira and psychosis. Patient is unable to give history accurately. He did receive Zyprexa in the ED with good effect and was resting most of the night and prep manager. He was admitted after being EE'd and plans were for inpatient psychiatric care. He had multiple expressions of suicide before he was evaluated in the ED the evening prior to admission on the morning of admission. He did reports that he would jump from a bridge and shoot himself in the carter. He was brought to the ED by the police with a warrant being given by a local pin game machine inspector deeming that he was a threat to himself. He does report that he was a previous smoker and his WBC was slightly elevated in the ED. Also his glucose was slightly elevated, both possibly being secondary to adrenaline surging. repeat labs show resolution with normal values at glucose 82 and WBC 6. He has remained medically stable, using prn ativan with good effect. He has been taking olanzapine 15 mg daily. mental health has been following and a bed has been secured at [facility] where his will be transported by [facility]. His Covid 19 testing was negative. Home Meds and New Rx's Prescriptions: New olanzapine [Zyprexa] 15 mg Tablet 15 mg PO DAILY Qty: 0 RF: 0 lorazepam 1 mg Tablet 2 mg PO Q4H PRN PRNQty: 0 RF: 0 Discharge Instructions Instructions: Bipolar Disorder (DC), Depression (DC) Stand Alone Forms: Nursing Discharge Form Referrals: [facility] [Primary Care Provider] - (follow up with pcp on discharge from inpatient psychiatric hospitalization) Activity:: Activity as Tolerated Diet:: As Tolerated Discharge Data Discharge Date/Time-TO BE ENTERED AT DEPARTURE: 04/26/20 14:18 DS: Summary Status at Discharge Functional status at discharge: independent ambulation Overall status at discharge: patient is not back to baseline Mental Status: mental status grossly normal and other (cooperative) Speech and Movement: speech and movement normal Mood: other (cooperative) Affect: normal affect Exam Const General: cooperative, healthy appearing, comfortable and no acute distress Nutritional Appearance: average body habitus Orientation: alert, awake and oriented x3 HENMT Head: normal to inspection, normocephalic and atraumatic Resp Effort & Inspection: normal respiratory effort Cardio Rate: regular rate Rhythm: regular rhythm GI Inspection: normal to inspection Neuro General: patient alert, patient awake, patient oriented x3 and moves all extremities Extrem General: normal to inspection, full ROM and no pedal edema Psych Appearance: grossly normal Mental Status: mental status grossly normal and other (cooperative) Speech and Movement: speech and movement normal Mood: other (cooperative) Affect: normal affect Attitude: cooperative Thought Content: suicidality Insight: limited Judgment: limited DS: Data Vitals/I&O Vitals and I&O: Vital Signs Temperature 36.5 C 04/26/20 07:30 Temperature Source Temporal Artery Scan 04/26/20 07:30 Pulse 79 04/26/20 07:30 Pulse Rhythm Regular 04/26/20 07:30 Respiratory Rate 18 04/26/20 07:30 Respiratory Effort Non-Labored 04/26/20 07:30 Respiratory Depth Normal 04/26/20 07:30 Respiratory Pattern Normal 04/26/20 07:30 Blood Pressure 134/87 04/26/20 07:30 Pulse Oximetry 95 04/26/20 07:30 Oxygen Delivery Method Room Air 04/26/20 07:30 Oxygen Flow Rate 0 04/26/20 07:30 Pain Level 0 04/26/20 11:30 Comment 04/26/20 11:30 Intake & Output 04/25/20 04/26/20 04/26/20 23:59 11:59 23:59 Intake Total 970 / 1450 720 / 720 Balance 970 / 1450 720 / 720 Intake: Oral 970 / 1450 720 / 720 Other: Urine Color Yellow Urine Appearance Clear Urine Odor None Comment unknown amount of urine pT independent with urinating. the contract technical writer was on the sight when pt was in the toilet. Voiding Methods Toilet Toilet Toilet Data Completed and Pending Labs on day of discharge: Labs from last 24 hours 04/26/20 04/26/20 04/26/20 08:30 06:33 06:33 WBC Cancelled 6.04 RBC Cancelled 4.52 Hgb Cancelled 14.2 D Hct Cancelled 41.6 MCV Cancelled 92.0 MCH Cancelled 31.4 MCHC Cancelled 34.1 RDW Cancelled 12.1 Plt Count Cancelled 267 MPV Cancelled 8.6 Immature Gran % 0.2 Neutrophils % 54.0 Lymphocytes % 34.4 Monocytes % 8.1 Eosinophils % 3.0 Basophils % 0.3 Absolute Neutrophils 3.26 Absolute Lymphocytes 2.08 Absolute Monocytes 0.49 Absolute Eosinophils 0.18 Absolute Basophils 0.02 Sodium 140 Potassium 4.4 Chloride 105 Carbon Dioxide 27.0 Anion Gap 8.0 BUN 31 H D Creatinine 0.87 Estimated GFR/1.73 m2 >= 60.00 Glucose 82 Calcium 9.1 Total Bilirubin 0.2 AST 21 ALT 28 Alkaline Phosphatase 69 Total Protein 6.8 Albumin 3.7 COVID-19 PCR Nasopharyn COVID-19 PCR Ref Test Perform Site 04/25/20 04:28 WBC RBC Hgb Hct MCV MCH MCHC RDW Plt Count MPV Immature Gran % Neutrophils % Lymphocytes % Monocytes % Eosinophils % Basophils % Absolute Neutrophils Absolute Lymphocytes Absolute Monocytes Absolute Eosinophils Absolute Basophils Sodium Potassium Chloride Carbon Dioxide Anion Gap BUN Creatinine Estimated GFR/1.73 m2 Glucose Calcium Total Bilirubin AST ALT Alkaline Phosphatase Total Protein Albumin COVID-19 PCR Negative Nasopharyn COVID-19 PCR Not Applicable Ref Test Perform Site [facility] lab [facility] Medical History (Updated 04/25/20 @ 06:50 by Kush Woodward) Anxiety (Chronic) Bipolar I disorder with mood-congruent psychotic features (Chronic) Social fears (Acute) Suicidal ideation (Acute) Social History Smoking/Tobacco Use Status: Former Tobacco Use Alcohol Intake: former Substance use type: does not use Do you feel safe at home: Yes Do you feel safe in your relationship?: Yes Additional Social history: homeless
--- NOTE | 2020-04-26 13:08 | NUR.NOTE ---
Nursing Note: At 1300 on 04/26/20, this RN received a call from and gave nurse to nurse report to MICHAEL Olvera at [facility]. This RN or care management to call [facility] once transportation has been arranged and an arrival time both at [facility] and then [facility] has been established. Care management notified.
--- NOTE | 2020-04-26 16:16 | CMDISCH_ITS ---
- If Service Date Differs Date of service: 04/26/20 Time of Service: 16:16 LACE Index Scoring Tool - Questions: Length of Stay (in days): 2 Acuity (Admit via E.D.?): Yes E.D. Visits: 4 - Answers: Total Score: 9 Risk of Readmission: Low Risk Care Management Discharge Reason for Hospitalization: Suicidal Ideation Discharge Plan: Melchor will transfer to the [facility] for psychiatric stabilization. He will transfer via Identification Officer. His second certification was upheld on 04/25/20, therefore this was an involuntary placement. LISBET facilitated a zoom meeting this morning with CYNTHIA Donovan, during which was unable to communicate, as he was sleeping and not able to arouse gently. LISBET communicated with an RN from , who requested additional documents, which LISBET sent. After RN to RN was completed and a bed was offered to Melchor, LISBET coordinated transport via Identification Officer, with the assistance of CYNTHIA Donovan, who contacted [facility] for approval. He was transported to at 14:15, and was cooperative. Patient/Family Education Needs: Review discharge instructions, expectations of treatment/ stabilization, RN to RN communication regarding behaviors during admission completed. Services Needed at Discharge: Transportation ([facility]) - MH Services (Omit if N/A) Current MH Services: Psychiatric Inp ([facility]) Referred to Internal HANNAH (ED embedded) nurse case manager?: Yes
== END 2020-04-26 14:18 | disposition short-term general hospital (02) | DRG 885 ==
LOC: ER 02:47 → MS 03:38
PROVIDERS: Nurse Practitioner Family; Admitting Provider Family Medicine; Emergency Provider Student in an Organized Health Care Education/Training Program; Visit Provider Family Medicine
DX: F31.2 Bipolar disorder, current episode manic severe with psychotic features (principal); R45.851 Suicidal ideations; Z91.5 Personal history of self-harm; Z87.891 Personal history of nicotine dependence; Z59.0 Homelessness; Z11.59 Encounter for screening for other viral diseases
CPT/HCPCS: 36415; 80053; 80307; 85027; 99219; 99239; 99283; 99285; U0003; 80320; 80329; 81003; 81015; 84443; 85025; 99222; G0378